=== PATIENT | female | born 2000 | race Caucasian/White ===

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

== ENCOUNTER → 2019-05-10 11:32 | Outpatient (CLI) | payer MEDICAID, SELFPAY | PROVIDERS: Visit Provider Nurse Practitioner Obstetrics & Gynecology | DX: N91.2 Amenorrhea, unspecified (principal) | CPT/HCPCS: 36415; 84702 ==

== ENCOUNTER → 2019-05-17 17:26 | Outpatient (CLI) | payer MEDICAID, SELFPAY ==
[2019-05-24 07:10] LABS: Neisseria gonorrhoeae, NAA Negative (Negative)
== END ==
PROVIDERS: Visit Provider Nurse Practitioner Obstetrics & Gynecology
DX: Z34.90 Encounter for supervision of normal pregnancy, unspecified, unspecified trimester (principal)
CPT/HCPCS: 87491; 87591

== ENCOUNTER → 2019-05-24 12:17 | Outpatient (CLI) | payer MEDICAID, SELFPAY ==
--- NOTE | 2019-05-24 12:30 | US_ITS ---
US OB transvaginal HISTORY: ITS.REASON: US T/V- Dates ORDERING PHYSICIAN: Khurram Ty MD PATIENT AGE: 18 years COMPARISON: None FINDINGS: An intrauterine gestational sac is present with a pole with a crown-rump length of 5.54cm correlating to gestational age of 12w1d. heart tones are present with an FHR of 150 bpm's. Adnexa: Unremarkable. IMPRESSION: Live intrauterine gestation at 12 weeks 1 days as described above. Estimated due date by Ultrasound is 12/05/2019
== END ==
PROVIDERS: Visit Provider Nurse Practitioner Obstetrics & Gynecology
DX: O26.841 Uterine size-date discrepancy, first trimester (principal)
CPT/HCPCS: 76817

== ENCOUNTER → 2019-07-19 13:43 | Outpatient (CLI) | payer MEDICAID, SELFPAY ==
--- NOTE | 2019-07-19 13:49 | US_ITS ---
PROCEDURE: US OB /MATERNAL DETAIL CLINICAL INDICATION: US OB Complete COMPARISON: OBTV US OB transvaginal from 05/24/2019 FINDINGS: Single viable intrauterine gestation. Cephalic position. Placenta: Posteriorplacenta grade 1. There is average amount fluid. The cervix appears satisfactory. Closed and measuring 3 cm in length. Complete survey performed and was unremarkable on the submitted images as in PACS. No discrete anomalies identified on survey imaging by technologist. Active fetus. Three-vessel cord with satisfactory umbilical cord insertion. 4- chamber heart noted. Survey of brain & ventricles Unremarkable. Face and neck survey unremarkable. Diaphragm and chest views unremarkable. Abdomen: Both kidneys noted and unremarkable. Stomach noted and satisfactory. Spine: Survey of the spine satisfactory with no anomalies identified nor imaged. Both arms and legs noted. Amniotic Fluid: Adequate. Maternal adnexa: No significant findings. Measurements: Average ultrasound age 20 week. Gestational Age 21 weeks 5 days Estimated due date by ultrasound age 0112/06/2019. Estimated weight 330.4 ggrams. BPD = 20 weeks 1 day OFD = 20 weeks 1 day HC = 19 weeks 2 days AC = 20 weeks 5 days FL = 19 weeks 5 days Growth Percentile= 2 percent% Heart Rate = 144 bpm Cerebellum = 21 weeks 1 day Humerus = 19 weeks 6 days HC/AC is 1.07 CI is 0.8 FL/BPD is 0.67 FL/AC is 0.2 IMPRESSION: There is a single live fetus which is in cephalic presentation with an average ultrasound age of 20 weeks and 0 days. The estimated weight is 330 g which is only 2 percentile. Follow-up suggested in. No obvious anomalies. heart and body motion noted. Please see above for detail Dictated by: Jerry Longoria MD 07/19/2019 18:04 <Electronically signed by Jerry Longoria MD in OV> 07/19/2019 18:04
[2019-07-19 16:27] LABS: Basophils # 0.1 K/mm3 (0-0.2); Basophils % 0.6 % (0.1-2.0); Eosinophils # 0.1 K/mm3 (0.0-0.4); Eosinophils % 0.8 % (0.1-12.0); Hematocrit 40.4 % (37.0-47.0); Hemoglobin 13.6 g/dL (12.2-16.2); Lymphocytes # 2.1 K/mm3 (0.7-4.5); Lymphocytes % 19.7 % (10-50); Mean Corpuscular HGB Conc 33.7 g/dL (31.8-35.4); Mean Corpuscular Hemoglobin 30.6 pg (27.0-31.2); Mean Corpuscular Volume 90.7 fl (81-99); Mean Platelet Volume 8.4 fl (7.4-10.4); Monocytes # 0.4 K/mm3 (0.1-1.0); Monocytes % 3.7 % (1.7-9.3); Neutrophils % 75.2 % (37.0-80.0); Platelet Count 305 K/mm3 (142-424); Red Blood Count 4.46 M/mm3 (4.20-5.40); White Blood Count 10.7 K/mm3 (4.5-13.0)
[2019-07-21 11:45] LABS: HIV Screen 4th Generation wRfx Non Reactive (Non Reactive); Hepatitis B Surface Antigen Negative (Negative); Hepatitis C Antibody <0.1 s/co ratio (0.0-0.9); Rapid Plasma Reagin Ab Titer Non Reactive (NonRea<1:1); Rubella Antibodies, IgG 1.16 index (Immune >0.99)
== END ==
PROVIDERS: Visit Provider Nurse Practitioner Obstetrics & Gynecology
DX: Z36.0 Encounter for antenatal screening for chromosomal anomalies (principal); Z34.90 Encounter for supervision of normal pregnancy, unspecified, unspecified trimester
CPT/HCPCS: 36415; 76811; 85025; 86592; 86703; 86762; 86850; 87340; 87380; G0432

== ENCOUNTER → 2019-08-16 17:06 | Outpatient (CLI) | payer MEDICAID, SELFPAY | PROVIDERS: Visit Provider Nurse Practitioner Obstetrics & Gynecology | DX: N39.0 Urinary tract infection, site not specified (principal) | CPT/HCPCS: 87086 ==

== ENCOUNTER → 2019-09-21 13:07 | Outpatient (CLI) | payer MEDICAID, SELFPAY ==
[2019-09-21 13:28] LABS: Glucose,Fasting 112 mg/dL (60-105)
[2019-09-21 15:12] LABS: Glucose 1 Hour 145 mg/dL (74-106)
== END ==
PROVIDERS: Visit Provider Nurse Practitioner Obstetrics & Gynecology
DX: Z34.90 Encounter for supervision of normal pregnancy, unspecified, unspecified trimester (principal); R73.09 Other abnormal glucose
CPT/HCPCS: 36415; 82951

== ENCOUNTER → 2019-10-05 10:29 | Outpatient (CLI) | payer MEDICAID, SELFPAY ==
[2019-10-05 11:39] LABS: Glucose,Fasting 110 mg/dL (60-105)
[2019-10-05 12:24] LABS: Glucose 1 Hour 211 mg/dL (74-106)
[2019-10-05 13:12] LABS: Glucose 2 Hour 149 mg/dL (74-106)
[2019-10-05 14:22] LABS: Glucose 3 Hour 104 mg/dL (74-106)
== END ==
PROVIDERS: Visit Provider Nurse Practitioner Obstetrics & Gynecology
DX: R73.09 Other abnormal glucose (principal); Z34.90 Encounter for supervision of normal pregnancy, unspecified, unspecified trimester
CPT/HCPCS: 36415; 82951

== ENCOUNTER → 2019-11-13 18:01 | Outpatient (CLI) | payer MEDICAID, SELFPAY | PROVIDERS: Visit Provider Nurse Practitioner Obstetrics & Gynecology | DX: Z34.90 Encounter for supervision of normal pregnancy, unspecified, unspecified trimester (principal) | CPT/HCPCS: 86403 ==

== ENCOUNTER 2019-11-27 20:44 | Inpatient (IN) ==
[2019-11-27 21:24] LABS: Microscopic, Urine URINE MICROSCOPIC (MICROSCOPIC)
[2019-11-27 21:27] LABS: Appearance,Urine CLEAR (Clear); Bilirubin,Urine Negative (Negative); Blood, Urine Negative (Negative); Color,Urine YELLOW (Yellow); Glucose,Urine (UA) Negative (Negative); Ketones,Urine Negative (Negative); Leukocyte Esterase,Urine TRACE (Negative); PH,Urine 6.5 (5.0-8.5); Protein,Urine Negative (Negative); Urobilinogen,Urine 0.2 EU/dl (0.2)
[2019-11-27 21:28] LABS: Basophils % 0.3 % (0.1-2.0); Eosinophils # 0.1 K/mm3 (0.0-0.4); Eosinophils % 0.6 % (0.1-12.0); Hematocrit 35.1 % (37.0-47.0); Hemoglobin 11.4 g/dL (12.2-16.2); Lymphocytes # 2.1 K/mm3 (0.7-4.5); Lymphocytes % 20.2 % (10-50); Mean Corpuscular HGB Conc 32.4 g/dL (31.8-35.4); Mean Corpuscular Volume 82.2 fl (81-99); Mean Platelet Volume 9.6 fl (7.4-10.4); Monocytes # 0.6 K/mm3 (0.1-1.0); Monocytes % 5.4 % (1.7-9.3); Neutrophils # 7.7 K/mm3 (1.8-7.8); Neutrophils % 73.4 % (37.0-80.0); Platelet Count 345 K/mm3 (142-424); Red Blood Count 4.27 M/mm3 (4.20-5.40); Red Cell Distribution Width 13.9 % (11.5-17.5); White Blood Count 10.5 K/mm3 (4.5-13.0)
[2019-11-27 21:36] LABS: Amphetamine/Metha Screen,Urine Negative ng/mL (<1000); Barbiturates Screen,Urine Negative ng/mL (<200); Benzodiazepines Screen,Urine Negative ng/mL (<200); Cannabinoid Screen,Urine Negative ng/mL (<50); Cocaine Screen,Urine Negative ng/mL (<300); Methadone Screen,Urine Negative ng/mL (<300); Opiate Screen,Urine Negative ng/mL (<300); Phencyclidine Screen,Urine Negative ng/mL (<25)
[2019-11-27 21:37] LABS: Bacteria,Urine Trace /lpf
--- NOTE | 2019-11-28 08:06 | Progress Note ---
Internal Medicine - PN: Subj *Date: 11/28/19 *Time: 08:05 Interval history: She is a 19-year-old 1 para 0 at 39 weeks gestational age. She has gestational diabetes. She has been diet-controlled. She also has morbid obesity. As result of that she is brought in for induction of labor at term. Exam Vital signs and Labs for Last 24 Hours: Temp Pulse Resp BP 98.8 F 116 H 17 144/81 H 11/27/19 20:48 11/27/19 20:48 11/27/19 20:48 11/27/19 20:48 Laboratory Results - last 24 hr 11/27/19 20:53: Urine Color Yellow, Urine Appearance Clear, Urine pH 6.5, Ur Specific [place] 1.020, Urine Protein Negative, Urine Glucose (UA) Negative, Urine Ketones Negative, Urine Blood Negative, Urine Nitrate Negative, Urine Bilirubin Negative, Urine Urobilinogen 0.2, Ur Leukocyte Esterase Trace, Urine WBC 3-5, Ur Squamous Epith Cells 3-5, Urine Bacteria Trace 11/27/19 20:53: Urine Opiates Screen Negative, Urine Methadone Screen Negative, Ur Barbituates Screen Negative, Ur Phencyclidine Scrn Negative, Ur Amphetamines Screen Negative, U Benzodiazepines Scrn Negative, Urine Cocaine Screen Negative, U Marijuana (THC) Screen Negative 11/27/19 21:14: WBC 10.5, RBC 4.27, Hgb 11.4 L, Hct 35.1 L, MCV 82.2, MCH 26.6 L , MCHC 32.4, RDW 13.9, Plt Count 345, MPV 9.6, Neut % (Auto) 73.4, Lymph % (Auto) 20.2, [place] % (Auto) 5.4, Eos % (Auto) 0.6, Baso % (Auto) 0.3, Neut # (Auto) 7.7, Lymph # (Auto) 2.1, [place] # (Auto) 0.6, Eos # (Auto) 0.1, Baso # (Auto) 0.0 11/27/19 21:14: Blood Type AB Positive, Antibody Screen Negative I & O for Last 24 hours: Intake & Output 11/25/19 11/26/19 11/27/19 11/28/19 11:59 11:59 11:59 11:59 Weight 254 lb - Constitutional no acute distress, morbidly obese Assessment and Plan (1) Gestational diabetes Current visit: No Status: Chronic Qualifiers: Category: Medical Code(s): O24.419 - Gestational diabetes mellitus in , unspecified control - Assessment and plan all Dx Assessment and Plan for all problems:: Her cervix remains closed and the presenting part is still quite high. She is on oxytocin. She had Cervidil overnight. We will see how she does over the next few hours. If she does not change her cervix we will go ahead and do a .
--- NOTE | 2019-11-28 11:45 | Progress Note ---
Labor Note - Subjective: Date: 11/28/19 Time: 11:43 regular contraction - Objective: NST:: Reactive Contractions:: every 2-3 minutes Cervical Dilation:: 1 Effacement:: 25% Station: -4 Membranes: intact - Fetus: Monitoring?: Yes monitoring type:: External - Assessment: Patient Problems: All Active Problems Gestational diabetes (Chronic) (Acute) Sinusitis (Acute) Otitis media (Acute) - Plan: Anesthesia for epidural?: No Continue to labor down?: Yes Plan for ?: Yes Continue to monitor?: Yes Start pushing?: No Comment:: She is doing well. Her nonstress test is reactive. Her cervix is closed and long. The presenting part is very high. I did an ultrasound and the presenting part is the head. We will see how she does over the next few hours. If she has not changed her cervix then we will go ahead with a .
--- NOTE | 2019-11-28 12:51 | Progress Note ---
[facility] Anesthesia Checklist - Patient Identification Patient Identification: Arm Band, Verbal (Name & ) - Structural Data Admitted From: Inpatient Planned Operative Procedure/s: c section Consent for Planned Operative Procedure(s) Verified: Yes Verified Documents: History and Physical - NPO Status Verified Time NPO: 00:00 - Additional verifications Patient : Yes Anesthesia Reactions: No Hx Blood Transfusions: No Blood Transfusion Reaction: No Cephalosporin Allergy: No Previous Colonoscopy: No - Cardiovascular Assessment Heart Sounds: S1 & S2 Pulse Strength: Baseline Pulse Rhythm: Regular Peripheral Edema: Yes - Airway Assessment C-Spine Mobility Assessed: No TMJ Mobility Assessed: No Dentition: Good Dentition - Neurological Assessment Level of Consciousness: Awake, Alert, Appropriate Hx Seizures: No Numbness or tingling in extremities: No - Anesthesia Plan Anesthesia Risk discussed: Yes Anesthesia Plan: Verified ASA Class: II Anesthesia Type: Spinal [facility] History I have reviewed the patient's past medical history: Yes Medical History: Denies:: Cancer, Diabetes Mellitus Type 1, Diabetes Mellitus Type 2, MRSA *Have you ever received a pneumonia vaccine?: No *Have you received a flu vaccine this season?: Yes Anesthesia experience/problems:: none Other Surgeries: Yes: No Previous Surgery. No: Amputation: No Fractures: No - *Social History Smoking Status: Current every day smoker Tobacco Type: cigarettes Alcohol Intake: never Substance Use Type: other *Occupational Status:: employed *Travel in the last 8 weeks: None Family Hx:: Diabetes Para: 0
[2019-11-28 13:48] LABS: Anion Gap 12.5 mEq/L (5-15); Calcium 8.4 mg/dL (8.5-10.1)
--- NOTE | 2019-11-28 15:19 | Progress Note ---
Internal Medicine - PN: Subj *Date: 11/28/19 *Time: 15:18 Interval history: She has been having regular contractions and despite this has not changed her cervix. The pelvis is quite narrow and the presenting part is very high. Her cervix is not dilated. Exam Vital signs and Labs for Last 24 Hours: Temp Pulse Resp BP Pulse Ox 97.8 F 79 18 119/73 99 11/28/19 11:20 11/28/19 11:20 11/28/19 11:20 11/28/19 11:20 11/28/19 07:46 Laboratory Results - last 24 hr 11/27/19 20:53: Urine Color Yellow, Urine Appearance Clear, Urine pH 6.5, Ur Specific [place] 1.020, Urine Protein Negative, Urine Glucose (UA) Negative, Urine Ketones Negative, Urine Blood Negative, Urine Nitrate Negative, Urine Bilirubin Negative, Urine Urobilinogen 0.2, Ur Leukocyte Esterase Trace, Urine WBC 3-5, Ur Squamous Epith Cells 3-5, Urine Bacteria Trace 11/27/19 20:53: Urine Opiates Screen Negative, Urine Methadone Screen Negative, Ur Barbituates Screen Negative, Ur Phencyclidine Scrn Negative, Ur Amphetamines Screen Negative, U Benzodiazepines Scrn Negative, Urine Cocaine Screen Negative, U Marijuana (THC) Screen Negative 11/27/19 21:14: WBC 10.5, RBC 4.27, Hgb 11.4 L, Hct 35.1 L, MCV 82.2, MCH 26.6 L , MCHC 32.4, RDW 13.9, Plt Count 345, MPV 9.6, Neut % (Auto) 73.4, Lymph % (Auto) 20.2, [place] % (Auto) 5.4, Eos % (Auto) 0.6, Baso % (Auto) 0.3, Neut # (Auto) 7.7, Lymph # (Auto) 2.1, [place] # (Auto) 0.6, Eos # (Auto) 0.1, Baso # (Auto) 0.0 11/27/19 21:14: Blood Type AB Positive, Antibody Screen Negative 11/28/19 13:28: Sodium 138, Potassium 3.5, Chloride 107, Carbon Dioxide 22, Anion Gap 12.5, BUN 7, Creatinine 0.52 L, Estimated Creat Clear 314 H, Estimated GFR 150, Est GFR ( Amer) 182, Glucose 89, Calcium 8.4 L I & O for Last 24 hours: Intake & Output 11/26/19 11/27/19 11/28/19 11/29/19 11:59 11:59 11:59 11:59 Weight 254 lb - Constitutional no acute distress, obese Assessment and Plan (1) Gestational diabetes Current visit: No Status: Chronic Qualifiers: Category: Medical Code(s): O24.419 - Gestational diabetes mellitus in , unspecified control (2) pelvic disproportion delivered Current visit: Yes Status: Acute Category: Medical Code(s): O33.9 - Maternal care for disproportion, unspecified - Assessment and plan all Dx Assessment and Plan for all problems:: She has not changed her cervix despite regular contractions. The pelvis is very narrow. As result of this we will go ahead with a primary lower segment transverse section for pelvic disproportion. We discussed the risks of surgery that includes bleeding, infection, injuries to the bowel and bladder. We discussed the rare risk of DVT. We discussed the need for DVT prophylaxis. All questions were answered and consents were signed.
--- NOTE | 2019-11-28 16:40 | Operative Note ---
Date of procedure: 11/28/19 Pre-op Diagnosis:: Term , gestational diabetes, pelvic disproportion Post-op Diagnosis:: Term , gestational diabetes, pelvic disproportion Procedure performed:: Primary lower segment transverse section Surgeon:: Khurram Ty MD Treating Plant Supervisor(s):: Brittney Evans DISTRICT MANAGER [employer]:: Chester Rivera Anesthesia: spinal Estimated blood loss (mL): 800 Clinical Note:: She is a 19-year-old 1 para 0 who was a gestational diabetic. As result of this we elected to induce her labor at term. She received Cervidil of the evening of 27 November 2018 and then on the morning of the was started on IV oxytocin. Her cervix did not change. Her cervix did not open. She was having regular strong contractions. The presenting part was extremely high. As result of that we elected to perform a primary lower segment transverse section Operative findings:: She delivered a liveborn female child at 4:05 PM on the evening of 28 November 2019. The baby had Apgars of 8 at 1 minute and 8 at 5 minutes. She weighed 9 pounds 14 ounces. pH was 7.38. Ovaries and tubes appeared normal. Operative note:: She was taken to the operating room where spinal anesthesia was found be adequate. She was prepped and draped in normal sterile fashion in the supine position with a leftward tilt. A Taylor catheter was in the bladder. A Pfannenstiel skin incision was made with knife then carried through to the underlying layer of fascia with cautery. The fascia was opened in the midline with cautery and extended laterally using Biggs scissors. Kya clamps were applied to the superior aspect of the fascial incision which was tented up and the underlying rectus muscles dissected off using cautery. The Kya clamps were then applied to the inferior aspect of the fascial incision which in a similar fashion was tented up and the underlying rectus muscles dissected off using cautery. The rectus muscles were then in the midline, the peritoneum identified, and entered sharply with Metzenbaum scissors. This incision was then extended superiorly and inferiorly with cautery. We had good visualization of the bladder inferiorly. The bladder peritoneum was then opened in the midline and extended laterally using Metzenbaum scissors. A bladder flap was created digitally. Transverse incision was made through the uterine muscle to the amnion. This incision was then extended laterally using fingers traction. The amnion was entered sharply with knife. There was clear amniotic fluid. The infant's head was then delivered atraumatically. This was followed by the anterior shoulder and the rest of the 's body atraumatically. The oropharynx and nasopharynx were bulb suctioned. The was then handed off to Dr. Hall who assigned Apgars of 8 at 1 minute and 8 at 5 minutes. We then obtained cord blood as well as cord pH. The pH was 7.38. Using gentle traction on the cord and countertraction on the fundus I was able to easily deliver the placenta intact. It had a normal three-vessel cord. The uterus was then cleared of clots and debris . The uterus was then exteriorized from the abdominal cavity. The uterine incision was then closed using running 0 Vicryl suture in a locked fashion. A second layer of the same suture was used to imbricate the first layer. The bladder peritoneum was then closed using running 2-0 Vicryl suture in a locked fashion. The gutters and cul-de-sac were then cleared of clots and debris . The uterus was then returned to the abdominal cavity. Once again hemostasis was assured. The peritoneum was grasped with Rosa Maria clamps and closed using running 2-0 Vicryl suture. The rectus muscles were then reapproximated using running 0 Vicryl suture. The fascia was closed using running #1 Vicryl suture. The subcutaneous tissues were then irrigated with warm water followed by closure Guerita's fascia using running 2-0 Monocryl suture. The skin was closed with running stratafix Monocryl suture.. I then cleaned the skin with Hibiclens. Sterile dressings were applied. She tolerated the procedure well and was taken to the recovery room in excellent condition. All sponge, instrument and needle counts were correct. Estimated blood loss was approximately 800 mL. Condition: stable Disposition: PACU Specimens:: Products of conception Complications:: None
--- NOTE | 2019-11-28 16:43 | Progress Note ---
[facility] Anesthesia Record Part I Intake, IV Amount: 1,000 Estimated blood loss (mL): 800 Urine output (mL): 0 Blood Pressure: 130/95 SaO2: 99 Pulse Rate: 87 Respiratory Rate: 16 Temperature: 98.2 F Patient is:: Awake, Stable Stable to PACU at:: 16:40
--- NOTE | 2019-11-28 18:06 | Progress Note ---
[facility] Anesthesia Record Part II Discharge Time: 17:13 Destination: Obstetric PACU nurse assessment reviewed?: Yes Patient Condition:: Good Anesthesia Complications:: None Swallowing reflex intact?: Yes Cyanosis?: No Blood Pressure: 118/68 Pulse Rate: 75 Temperature: 97.9 F Mental Status: Alert & Oriented Pain level:: 0 Nausea and/or vomitting:: None Intake, IV Amount: 0
[2019-11-29 05:59] LABS: Hematocrit 32.9 % (37.0-47.0); Hemoglobin 10.7 g/dL (12.2-16.2)
--- NOTE | 2019-11-29 08:30 | Progress Note ---
Internal Medicine - PN: Subj *Date: 11/29/19 *Time: 08:28 Interval history: She is doing well this morning. She is eating and drinking and ambulating. She is bottlefeeding. Her lochia is normal. Exam Vital signs and Labs for Last 24 Hours: Temp Pulse Resp BP Pulse Ox 97.9 F 75 18 118/68 100 11/28/19 18:06 11/28/19 18:06 11/28/19 17:22 11/28/19 18:06 11/28/19 17:22 Laboratory Results - last 24 hr 11/28/19 13:28: Sodium 138, Potassium 3.5, Chloride 107, Carbon Dioxide 22, Anion Gap 12.5, BUN 7, Creatinine 0.52 L, Estimated Creat Clear 314 H, Estimated GFR 150, Est GFR ( Amer) 182, Glucose 89, Calcium 8.4 L 11/28/19 14:08: POC Glucose 92 11/28/19 15:45: Urine Color Dk yellow, Urine Appearance Clear, Urine pH 7.0, Ur Specific [place] 1.020, Urine Protein Trace, Urine Glucose (UA) Negative, Urine Ketones Negative, Urine Blood Negative, Urine Nitrate Negative, Urine Bilirubin Negative, Urine Urobilinogen 1.0, Ur Leukocyte Esterase Negative, Urine WBC Occasional, Ur Squamous Epith Cells Occasional, Urine Bacteria Trace 11/28/19 16:18: Cord ABG pH 7.38 11/29/19 05:18: Hgb 10.7 L, Hct 32.9 L I & O for Last 24 hours: Intake & Output 11/26/19 11/27/19 11/28/19 11/29/19 11:59 11:59 11:59 11:59 Intake Total 1000 / 1000 Output Total 75 / 75 Balance 925 / 925 Weight 254 lb - Constitutional no acute distress, obese Assessment and Plan (1) Gestational diabetes Current visit: No Status: Chronic Qualifiers: Category: Medical Code(s): O24.419 - Gestational diabetes mellitus in , unspecified control (2) pelvic disproportion delivered Current visit: Yes Status: Acute Category: Medical Code(s): O33.9 - Maternal care for disproportion, unspecified - Assessment and plan all Dx Assessment and Plan for all problems:: She is doing well this morning. She is eating and drinking and ambulating. Her pain is well controlled. Her incision is clean and dry. We will plan to send her home in 48 hours.
--- NOTE | 2019-11-30 16:14 | Progress Note ---
Internal Medicine - PN: Subj *Date: 11/30/19 *Time: 16:14 Interval history: She is doing very well today. She is eating and drinking and ambulating. She is bottlefeeding. Her lochia is normal. Her pain is well controlled. Exam Vital signs and Labs for Last 24 Hours: Temp Pulse Resp BP Pulse Ox 98.3 F 83 18 134/78 99 11/30/19 08:00 11/30/19 08:00 11/30/19 08:00 11/30/19 08:00 11/30/19 08:00 I & O for Last 24 hours: Intake & Output 11/28/19 11/29/19 11/30/19 12/01/19 11:59 11:59 11:59 11:59 Intake Total 1000 / 1000 Output Total 75 / 75 Balance 925 / 925 Weight 254 lb - Constitutional no acute distress Assessment and Plan (1) Gestational diabetes Current visit: No Status: Chronic Qualifiers: Category: Medical Code(s): O24.419 - Gestational diabetes mellitus in pregnanc y, unspecified control (2) pelvic disproportion delivered Current visit: Yes Status: Acute Category: Medical Code(s): O33.9 - Maternal care for disproportion, unspecified - Assessment and plan all Dx Assessment and Plan for all problems:: She is doing very well. We will plan to send her home tomorrow.
[2019-12-01 05:48] VITALS: BP 132/75
--- NOTE | 2019-12-01 09:00 | Discharge Summary ---
General - General Admission date:: 11/27/19 Discharge date: 12/01/19 HPI HPI: She is a 19-year-old 1 para 0 at 39 weeks gestational age. She had gestational diabetes and was brought in for induction of labor at term. She was started on Cervidil and then oxytocin. Hospital Course Hospital Course: On the evening of 27 November 2019 she was started on Cervidil. The following morning the Cervidil was removed and IV oxytocin started. She really failed to progress at all. The cervix did not dilate despite regular contractions throughout the day. The head was not engaged. I suspect that she had a large for gestational age as result of that we elected perform a primary lower segment transverse section. She delivered a liveborn female child at 4:05 PM in the afternoon of November 28, 2019. The baby weighed 9 pounds 14 ounces with Apgars of 8 at 1 minute and 9 at 5 minutes. pH was 7.3. She has done well postoperatively and has remained afebrile throughout her hospitalization. She is eating and drinking and ambulating. She is bottlefeeding. She has a be positive blood, she is rubella immune and was group B streptococcus negative. She is discharged home to follow-up with me in approximately 2 weeks time. She will continue with her vitamins and iron. She was given the usual instructions with respect to limiting her activity, driving and sexual activity. She was given a prescription for Percocet 5/325 number 30 tablets. Rhogam Administration: Not Indicated Objective Vital signs: Temp Pulse Resp BP Pulse Ox 98.5 F 92 H 18 132/75 98 12/01/19 04:24 12/01/19 04:24 12/01/19 04:24 12/01/19 04:24 12/01/19 04:24 no acute distress, obese DS: Diagnosis - Discharge Diagnosis (1) Gestational diabetes Status: Chronic (2) pelvic disproportion delivered Status: Acute Discharge Plan - Patient Discharge Instructions ACTIVITY: No heavy lifting DIET: continue same diet Additional Instructions: no heavy lifting, no driving for 2 weeks or while taking prescription narcotics, nothing in the vagina for 6 weeks. FOLLOW-UP WITH DR. TY ON 12/12/19 AT 11:15 Patient Instructions: Depression, Hemorrhage, DI for Surgical Site Infection, DI for Postoperative Pain, [facility] Post Discharge Instructions - Follow up Plan Follow up with: Khurram Ty MD [Primary Care Provider] - 12/12/19 11:15 am Disposition: Home, Self-Assisted Medications: Home Medications Medication Instructions Recorded Confirmed Type vitamin no.115-iron 29 1 tab PO DAILY 05/17/19 11/27/19 History mg-folic acid 1 mg chewable tablet Oxycodone HCl/Acetaminophen 1 - 2 tab PO Q4-6H PRN #30 tablet 12/01/19 Rx [Percocet 5/325mg tablet] Prescriptions/Medication Reconciliation: New Oxycodone HCl/Acetaminophen [Percocet 5/325mg tablet] 1 - 2 tab PO Q4-6H PRN #30 tablet PRN Reason: Severe Pain Continued vitamin no.115-iron 29 mg-folic acid 1 mg chewable tablet 1 tab PO DAILY - Problem Reconciliation Problems Reviewed?: Yes
== END 2019-12-01 10:36 | disposition home or self-care (01) | DRG 788 ==
LOC: OB 20:44
PROVIDERS: ADMIT Nurse Practitioner Obstetrics & Gynecology; ATTEND Nurse Practitioner Obstetrics & Gynecology
CPT/HCPCS: J2405